=== PATIENT | male | born 1950 | race Caucasian/White ===

== ENCOUNTER 2019-11-12 10:28 | Outpatient (CLI) | payer OTHER, SELFPAY ==
[2019-11-12 11:05] LABS: Basophils Percent Auto 0.2 % (0.2-1.2); Eosinophils Absolute Auto 0.2 K/mm3 (0-0.3); Eosinophils Percent Auto 2.9 % (0-4.4); Hematocrit 42.2 % (42.0-52.0); Immature Granulocyte Absolute 0.04 K/mm3 (0.00-0.031); Immature Granulocyte Percent A 0.5 % (0-0.5); Lymphocytes Absolute Auto 1.63 K/mm3 (0.9-3.2); Lymphocytes Percent Auto 19.8 % (18.3-44.2); Mean Corpuscular HGB Conc 30.8 g/dl (32-36); Mean Corpuscular Hemoglobin 26.1 pg (26-34); Mean Corpuscular Volume 84.7 fl (80-100); Mean Platelet Volume 9.7 fl (7.4-10.4); Monocytes Absolute Auto 0.6 K/mm3 (0.1-0.6); Monocytes Percent Auto 6.8 % (2.6-8.5); Neutrophils Absolute Auto 5.8 K/mm3 (1.3-6.7); Neutrophils Percent Auto 69.8 % (45.5-73.1); Platelet Count Result 208 k/mm3 (150-375); Red Blood Count 4.98 M/mm3 (4.6-6.20); White Blood Count 8.2 K/mm3 (4.5-10.0)
[2019-11-12 11:15] LABS: Hemoglobin A1C 5.6 % (<5.7)
[2019-11-12 11:17] LABS: Alanine Aminotransferase 11 U/L (4-50); Albumin Level 4.2 g/dL (3.5-5.1); Alkaline Phosphatase 128 U/L (38-126); Aspartate Amino Transferase 21 U/L (17-59); Bilirubin,Total 1.3 mg/dL (0.2-1.3); Blood Urea Nitrogen 16 mg/dL (9-20); Calcium 8.8 mg/dL (8.4-10.2); Carbon Dioxide 25 mmol/L (22-30); Chloride 102 mmol/L (98-107); Cholesterol 112 mg/dL (0-200); Estimated Glomerular Filt Rate > 60; Glucose 104 mg/dL (75-110); HDL Direct 51 mg/dL; Sodium 135 mmol/L (137-145); Triglycerides 70 mg/dL (<150)
[2019-11-12 11:28] LABS: LDL Cholesterol Direct 37 mg/dL
[2019-11-12 12:17] LABS: Creatinine Urine 54.4 mg/dL
[2019-11-12 12:22] LABS: Microalbumin Urine Random 10.9 mg/L (0-16.7)
== END 2019-11-12 10:29 | disposition home or self-care (01) ==
PROVIDERS: PCP Family Medicine; Visit Provider Nurse Practitioner
DX: R53.83 Other fatigue (principal); I10 Essential (primary) hypertension; N18.3 Chronic kidney disease, stage 3 (moderate); E78.5 Hyperlipidemia, unspecified; Z86.39 Personal history of other endocrine, nutritional and metabolic disease
CPT/HCPCS: 36415; 80053; 80061; 82043; 83036; 85025

== ENCOUNTER 2020-05-04 14:47 | Outpatient (CLI) | payer OTHER, SELFPAY ==
--- NOTE | ~2020-05-04 | XR_ITS ---
XR knee RT 2V 05/04/2020 15:23 Indication: Right knee pain Procedure: 3 views right knee Comparison: 02/17/2016 Findings: There is severe osteoarthritis of the right knee. No erosive changes. No fracture or trauma tic malalignment. No significant joint effusion. Impression: 1: Severe osteoarthritis of the right knee. Reviewed, dictated and finalized at location B. Impression: 1: Severe osteoarthritis of the right knee.
== END 2020-05-04 14:48 ==
LOC: MICIMG 14:48
PROVIDERS: Visit Provider Nurse Practitioner Family
DX: M25.561 Pain in right knee (principal); M17.11 Unilateral primary osteoarthritis, right knee
CPT/HCPCS: 73560

== ENCOUNTER 2020-12-15 10:07 | Outpatient (CLI) | payer OTHER, SELFPAY ==
--- NOTE | 2020-12-15 10:41 | ECHO_ITS ---
Patient Info Name: Leo Martinez Age: 70 years : 1950 Gender: Male Ht: 72 in Wt: 386 lbs BSA: 3.08 m2 HR: 72 bpm Heart Rhythm: Atrial Fibrillation Exam Date: 12/15/2020 10:52 AM Exam Location: [facility] Pulmonary Patient Status: Outpatient Admit Date: 12/15/2020 Staff Ordering Physician: Xavier Reynolds DO Battery Plate Assembler: Georgie Joshi RDCS Attending Provider: Xavier Reynolds DO Exam Type: CA echo doppler color flow Study Info Indications - UNSPECIFIED ATRIAL FIBRILLATION Complete two-dimensional, color flow and Doppler transthoracic echocardiogram is performed. Summary 1. Complete two-dimensional, color flow and Doppler transthoracic echocardiogram is performed. 2. Left ventricular chamber dimension is normal. 3. Left ventricular systolic function is normal, estimated at 55-60%. 4. There is mildly increased left ventricular wall thickness. 5. The left ventricular diastolic function is normal. 6. E/e' 8 is minimally elevated. 7. Atrial fibrillation. 8. Left atrial chamber dimension is severely enlarged. 9. Right atrial chamber dimension is severely enlarged. 10. There is moderate aortic valve sclerosis. 11. There is mild to moderate mitral valve regurgitation. 12. There is mild to moderate tricuspid valve regurgitation. 13. Moderate pulmonary hypertension, estimated pulmonary arterial systolic pressure is 51 mmHg. Left Ventricle E/e' 8 is minimally elevated. Atrial fibrillation. Left ventricular chamber dimension is normal. Left ventricular systolic function is normal, estimated at 55-60%. There is mildly increased left ventricular wall thickness. The left ventricular diastolic function is normal. Right Ventricle Right ventricular chamber dimension is not well visualized. Left Atria Left atrial chamber dimension is severely enlarged. Right Atria Right atrial chamber dimension is severely enlarged. Aortic Valve The aortic valve is trileaflet. There is moderate aortic valve sclerosis. There is no aortic valve stenosis. There is no aortic valve regurgitation. Pulmonic Valve There is no pulmonic regurgitation. Mitral Valve There is no mitral valve stenosis. There is mild to moderate mitral valve regurgitation. Tricuspid Valve There is mild to moderate tricuspid valve regurgitation. Moderate pulmonary hypertension, estimated pulmonary arterial systolic pressure is 51 mmHg. Pericardium/Pleural There is no pericardial effusion. Inferior Vena Cava Normal inferior vena cava with >50% collapse upon inspiration consistent with normal right atrial pressure, 5 mmHg. Aorta The aortic root size at the sinus of Valsalva is normal. Left Ventricular Outflow Tract Name Value Normal LVOT 2D LVOT Diameter 2.3 cm LVOT Doppler LVOT Peak Gradient 3 mmHg LVOT Mean Gradient 2 mmHg LVOT VTI 24 cm LVOT VTI/AV VTI Ratio 0.7 LVOT Stroke Volume 94 ml LVOT CO 4.8 l/min LVOT CI 1.6 l
== END 2020-12-15 10:08 | disposition home or self-care (01) ==
LOC: ANHCARD 10:09
PROVIDERS: PCP Family Medicine; Visit Provider Internal Medicine Cardiovascular Disease
DX: I48.91 Unspecified atrial fibrillation (principal); I51.7 Cardiomegaly; I27.20 Pulmonary hypertension, unspecified
CPT/HCPCS: 93306

== ENCOUNTER 2021-02-04 16:53 | Inpatient (IN) | payer OTHER, SELFPAY ==
[2021-02-04] VITALS (15 sets, daily range): BP systolic 142–184; BP diastolic 76–112; PULSE 58–81; RESP 15–24; TEMP 36.6; O2SAT 91–96
--- NOTE | ~2021-02-04 | XR_ITS ---
EXAMINATION: XR chest 2V EXAM DATE: 02/04/2021 21:25 INDICATION: Shortness of breath, history of atrial fibrillation. TECHNIQUE: Frontal and lateral projections of the chest obtained and reviewed. There is no prior ted dy for comparison. FINDINGS: There is cardiomegaly. Small pleural effusions. There is pulmonary vascular congestion. No confluent consolidation, pneumothorax or pleural effusion suspected. There are no osseous abnormaliti es identified. IMPRESSION: Cardiomegaly, congestion and small pleural effusions. Reviewed, dictated and finalized at location G.
--- NOTE | 2021-02-04 16:59 | ECG_ITS ---
Measurements Intervals [place] Rate: 67 P: CO: 0 QRS: -47 QRSD: 113 T: 40 QT: 412 QTc: 437 Interpretive Statements ATRIAL FIBRILLATION LEFT ANTERIOR FASCICULAR BLOCK VOLTAGE CRITERIA FOR LVH ABNORMAL ECG Electronically Signed On 02-04-2021 20:53:38 CDT by Xavier Reynolds D.O.
[2021-02-04 17:48] LABS: Basophils Percent Auto 0.1 % (0.2-1.2); Eosinophils Absolute Auto 0.1 K/mm3 (0-0.3); Eosinophils Percent Auto 1.7 % (0-4.4); Hematocrit 43.5 % (42.0-52.0); Hemoglobin 12.9 g/dL (14.0-18.0); Immature Granulocyte Absolute 0.03 K/mm3 (0.00-0.031); Immature Granulocyte Percent A 0.4 % (0-0.5); Lymphocytes Absolute Auto 0.98 K/mm3 (0.9-3.2); Mean Corpuscular HGB Conc 29.7 g/dl (32-36); Mean Corpuscular Hemoglobin 25.1 pg (26-34); Mean Corpuscular Volume 84.8 fl (80-100); Mean Platelet Volume 10.3 fl (7.4-10.4); Monocytes Absolute Auto 0.6 K/mm3 (0.1-0.6); Monocytes Percent Auto 7.9 % (2.6-8.5); Neutrophils Absolute Auto 6.3 K/mm3 (1.3-6.7); Neutrophils Percent Auto 77.9 % (45.5-73.1); Platelet Count Result 198 k/mm3 (150-375); Red Blood Count 5.13 M/mm3 (4.6-6.20); Red Cell Distribution Width 17.4 % (11.5-14.5); White Blood Count 8.1 K/mm3 (4.5-10.0)
[2021-02-04 17:56] LABS: Hypochromasia 1+ (NORMAL); Ovalocytes 1+ (NORMAL); Platelet Estimate Adequate (Adequate)
[2021-02-04 17:58] LABS: INR 1.4; Prothrombin Time 16.5 Seconds (11.1-14.7)
[2021-02-04 17:59] LABS: Partial Thromboplastin Time 35.1 SECONDS (22.3-36.8)
[2021-02-04 20:09] LABS: Anion Gap 9 mmol/L (8-16); Blood Urea Nitrogen 21 mg/dL (9-20); Calcium 9.3 mg/dL (8.4-10.2); Carbon Dioxide 31 mmol/L (22-30); Chloride 98 mmol/L (98-107); Estimated CRCL calculation 97 ml/min; Estimated Glomerular Filt Rate > 60; Glucose 88 mg/dL (65-110); Sodium 138 mmol/L (137-145)
[2021-02-04 20:21] LABS: NT Pro B Type Natriuretic Pept 7320 pg/mL (5-100); Troponin I < 0.012 ng/mL (0.000-0.034)
--- NOTE | 2021-02-04 20:36 | ED.SOB ---
HPI - SOB/Dyspnea General Chief Complaint: Shortness of Breath/Dyspnea Stated Complaint: unspecified Time Seen by Provider: 02/04/21 19:47 Source: patient and RN notes reviewed Mode of arrival: ambulatory Limitations: no limitations History of Present Illness HPI Narrative: This is a 70 year old male with history of atrial fibrillation, CKD, hypertension who presents for evaluation of shortness of breath. He reports he is having shortness of breath with exertion for 1 week. He is unsure of history CHF but he does take Lasix. He states he does not take daily as it prescribed because it makes him urinate to frequently. He denies fever, chest pain, cough or wheezing. HE does reports chronic leg edema that has gradually worsened over past few months. He is scheduled to see Dr Piña next month for evaluation of his chronic shortness of breath. Related Data Home Medications Medication Instructions Recorded Confirmed amlodipine [Norvasc] 5 mg PO DAILY 02/05/21 02/05/21 atorvastatin 40 mg PO HS 02/05/21 02/05/21 bupropion HCl [Wellbutrin XL] 300 mg PO QAM 02/05/21 02/05/21 duloxetine 30 mg PO BID 02/05/21 02/05/21 metformin 500 mg PO DAILY 02/05/21 02/05/21 metoprolol tartrate 100 mg PO BID 02/05/21 02/05/21 Allergies Allergy/AdvReac Type Severity Reaction Status Date / Time baclofen Allergy Unknown Unknown Verified 02/04/21 17:09 Review of Systems Review of Systems: All systems reviewed & are unremarkable except as noted in HPI and below Constitutional: Constitutional: Denies chills and Denies fever(s) ENT: Denies nasal congestion and Denies sore throat Cardiovascular: Cardiovascular: Denies chest pain and Denies radiating jaw, neck or arm pain Respiratory: Respiratory: Denies cough, Reports dyspnea and Denies wheezing Gastrointestinal: Gastrointestinal: Denies abdominal pain, Denies diarrhea, Denies nausea and Denies vomiting Musculoskeletal: Comments: leg edema PMFSH Past Medical History Medical History Atrial fibrillation BPH (benign prostatic hyperplasia) CKD (chronic kidney disease) stage 3, GFR 30-59 ml/min Follows with Dr Morin Essential (primary) hypertension GERD without esophagitis History of DVT of lower extremity Lumbar spondylosis with myelopathy Osteoarthritis Surgical History Surgical History History of knee surgery History of rotator cuff surgery (~1985) History of total hip replacement (~2006) Family History Family History Other Asthma Social History Social History Social History: drinks 1 soda per week Years smoked: 20 Smoking status: Former smoker Tobacco type: cigarettes Second hand tobacco smoke exposure: No Smoking end date: 07/16/82 Alcohol intake: current Alcohol use details: drinks 2 beverages per yr. approximately. Substance use: never Substance use type: does not use Additional living arrangements comments: with of 36 years Gender identity (if verbalized by the patient): Male Spiritual care concerns: No Agree to blood products: Yes Exam Const: General: no acute distress and alert Nutritional Appearance: obese Orientation/consciousness: patient oriented x3 Eyes: EOM: EOMs intact bilaterally Resp: Effort & Inspection: normal respiratory effort, not labored and not tachypneic Auscultation: clear to auscultation bilaterally and diminished lung sounds Cardio: Rate: regular rate Rhythm: regular rhythm Heart sounds: no murmurs GI: GI Palp: Yes Soft to palpation, No Tenderness to palpation present (GI) and No Guarding due to palpation present (GI) Auscultation: normal bowel sounds Skin: Other: bilateral venous stasis change to legs, Neuro: General: patient oriented x3 and moves all extremities
[2021-02-04 20:59] LABS: Alveolar/Arterial O2 Gradient 31.5 mmHg; Base Excess ABG 5.2 mEq/l (+/-2.0); Carboxyhemoglobin 1.9 % THb (0-2.0); Fractional Inspired Oxygen 21 %; HCO3 ABG 29.8 mEq/l (22.0-26.0); Methemoglobin ABG 0.3 %THb (0-1.5); Oxygen Content ABG 17.4 %vol (16.0-22.0); Oxygen Saturation ABG 93.8 % (95.0-100.0); Oxyhemoglobin 90.9 % THb (90.0-100.0); PCO2 ABG 43.8 mmHg (35.0-45.0); PO2 ABG 65.8 mmHg (80.0-100.0); PO2 FiO2 Ratio Arterial Blood 3.13 %; Reduced Hemoglobin 6.9 %THb (0-5.0); Total Hemoglobin 13.6 g/dL (12.0-18.0); pH ABG 7.451 (7.350-7.450)
[2021-02-04 21:00] LABS: Device ROOM AIR; Modified Allen's Test Pass; Site Drawn RIGHT RADIAL
[2021-02-04] MEDS: FUROSEMIDE INJ 40 MG/4 ML VIAL IV PUSH (21:58)
[2021-02-05] VITALS (13 sets, daily range): BP systolic 127–167; BP diastolic 70–90; PULSE 58–84; RESP 16–18; TEMP 36.3–36.6; O2SAT 94–100
[2021-02-05 01:02] LABS: Glucose Point of Care 75 mg/dl (65-105)
[2021-02-05] MEDS: amLODIPine BESYLATE 5 MG TABLET PO ×2 (02:01→09:11)
--- NOTE | 2021-02-05 02:58 | ADMGEN ---
This patient, Leo Martinez, was admitted to Medical Room [facility]- at 0240. Patient/family oriented to hospital policies and general routines including ID bracelet, bed and alarms, visiting hours, pain management, procedures, bathroom and other care routines, personal items, smoking policy, room service/diet, and visiting hours. Information on how to activate the Rapid Response Team has been discussed. Patient/Family are encouraged to report perceived risks to care and to ask questions if they do not understand what they are told or what they should do.
[2021-02-05] MEDS: FUROSEMIDE INJ 40 MG/4 ML VIAL IV PUSH ×2 (08:11→20:49)
[2021-02-05 08:24] LABS: Anion Gap 7 mmol/L (8-16); Blood Urea Nitrogen 19 mg/dL (9-20); Calcium 8.7 mg/dL (8.4-10.2); Carbon Dioxide 33 mmol/L (22-30); Chloride 96 mmol/L (98-107); Estimated CRCL calculation 97 ml/min; Estimated Glomerular Filt Rate > 60; Glucose 94 mg/dL (65-110); Potassium 3.1 mmol/L (3.4-5.0); Sodium 136 mmol/L (137-145)
[2021-02-05] MEDS: METOPROLOL TARTRATE 50 MG TAB 100 MG PO ×2 (09:11→20:49)
[2021-02-05] MEDS: buPROPion HCL XL (24 HR) 150 MG TABCR 300 MG PO (09:12)
[2021-02-05] MEDS: TAMSULOSIN HCL 0.4 MG CAPSULE PO (09:12)
[2021-02-05] MEDS: FERROUS SULFATE 324 MG TABLET PO ×2 (09:12→18:10)
[2021-02-05] MEDS: lisinopriL 20 MG TABLET 40 MG PO ×2 (09:12→20:49)
[2021-02-05] MEDS: DOCUSATE SODIUM 100 MG CAPSULE PO (09:12)
[2021-02-05] MEDS: APIXABAN 5 MG TABLET PO ×2 (09:12→18:10)
--- NOTE | 2021-02-05 10:49 | PM.IMHP ---
H&P: HPI History of Present Illness Date/Time: 02/05/21 10:49 Chief Complaint: dyspnea Narrative: date of admission: 02/04/2021 date of service: 02/05/2021 Leo Martinez is a 70-year-old male with history of atrial fibrillation on chronic anticoagulation, CKD stage III, hypertension, BPH, and CVA who presented to the emergency department on 02/04/2021 statinghe was not feeling right . he began not feeling well morning of presentation. He said that he was a little short of breath and felt wobbly when walking. All throughout the day, he continued not to feel like himself, therefore decided to call EMS. upon presentation to the emergency department, his vital signs were stable, hemoglobin was slightly decreased at 12.9 additional CBC and BMP unremarkable, troponin negative, BNP 7000, and CXR showed cardiomegaly with small pleural effusions and pulmonary vascular congestion, concerning for CHF exacerbation. On my initial evaluation, he was beginning to feel a bit better. With further questioning, he indicates that he has had dyspnea on exertion ongoing for >6 months. He has had decreased exercise tolerance, and about 2 weeks ago, he arrived at this facility for an appointment but was not able to make it down the hallway so he sat for about 30 minutes in the chamorro, then enlisted the help of security personnel to get him back into his vehicle. He typically goes to a local restaurant about 3x/week and recently has been needing assistance to get in and out of his truck. He notes his lower extremities are chronically edematous, but worsened recently. He denies abdominal or scrotal swelling. Unable to indicate orthopnea as he has slept in a recliner for many years for comfort. He never lays flat. Denies cough. No chest pain or palpitations. He has not taken his Lasix in 1 month due to unwanted frequent urination, noting he has had difficulty with urinary incontinence for >6 months since his stroke. He is being admitted for observation. Supervising physician for this history and physical is Dr. Kristopher Peralta Review of Systems Review of Systems: Narrative: All systems reviewed with pertinent positives and negatives as per HPI. Additionally, he denies headache, dysphagia, visual disturbances, hearing loss. No abdominal pain, nausea, or vomiting. Reports regular bowel movements and denies melena or hematochezia. Denies dysuria, hematuria but does have issues with incontinence. He has chronic neuropathy in the lower extremities. He has chronic knee and back pain and is followed by Pain Management. He is also established with Dr. Reynolds armhole presser, Dr. Morin, lead net software developer, and Dr. Terrell, member services coordinator. [facility] Past Medical History Medical History (Updated 02/05/21 @ 11:35 by Oxana Alonso PA-C) Atrial fibrillation BPH (benign prostatic hyperplasia) CKD (chronic kidney disease) stage 3, GFR 30-59 ml/min Follows with Dr Morin CVA (cerebral vascular accident) Essential (primary) hypertension History of DVT of lower extremity Lumbar spondylosis with myelopathy Osteoarthritis Surgical History Surgical History (Updated 02/05/21 @ 11:15 by Oxana Alonso PA-C) History of cholecystectomy History of knee surgery History of rotator cuff surgery (~1985) History of total hip replacement (~2006) Family History Family History (Updated 02/05/21 @ 11:16 by Oxana Alonso PA-C) Father Diabetes mellitus Heart disease Mother Hypertension Other Asthma Social History Social History (Updated 02/05/21 @ 11:20 by Oxana Alonso PA-C) Social History: Mr. Martinez lives at home with his . He is independent with his daily activities. He is retired from working as a laborer airport maintenance. He designates his , Jennyfer, as his surrogate decision maker and would like to be a full code. Smoking packs per day: 1 Smoking cigarettes per day: 20.0 Years smoked: 25 Smoking pack-years: 25.00 Smoking status: Former smoker Tobacco
[2021-02-05 12:21] LABS: Glucose Point of Care 103 mg/dl (65-105)
[2021-02-05] MEDS: POTASSIUM CHLORIDE 20 MEQ TABLET 40 MEQ PO (12:58)
[2021-02-05 17:25] LABS: Glucose Point of Care 102 mg/dl (65-105)
[2021-02-05] MEDS: POTASSIUM CHLORIDE 20 MEQ TABLET.ER PO (18:10)
[2021-02-05] MEDS: ATORVASTATIN 40 MG TABLET PO (20:50)
[2021-02-05 22:02] LABS: Glucose Point of Care 129 mg/dl (65-105)
[2021-02-06] VITALS (10 sets, daily range): BP systolic 142–154; BP diastolic 78–91; PULSE 50–74; RESP 16; TEMP 36.1–36.2; O2SAT 93–98
[2021-02-06 05:51] LABS: Hematocrit 40.9 % (42.0-52.0); Hemoglobin 12.6 g/dL (14.0-18.0)
[2021-02-06 06:04] LABS: Anion Gap 6 mmol/L (8-16); Blood Urea Nitrogen 15 mg/dL (9-20); Calcium 8.6 mg/dL (8.4-10.2); Carbon Dioxide 34 mmol/L (22-30); Chloride 96 mmol/L (98-107); Estimated CRCL calculation 97 ml/min; Estimated Glomerular Filt Rate > 60; Glucose 92 mg/dL (65-110); Magnesium 1.7 mg/dL (1.6-2.3); Potassium 3.1 mmol/L (3.4-5.0); Sodium 136 mmol/L (137-145)
[2021-02-06 08:06] LABS: Glucose Point of Care 110 mg/dl (65-105)
[2021-02-06] MEDS: POTASSIUM CHLORIDE 20 MEQ TABLET PO (09:47)
[2021-02-06] MEDS: FERROUS SULFATE 324 MG TABLET PO ×2 (09:48→17:21)
[2021-02-06] MEDS: POTASSIUM CHLORIDE 20 MEQ TABLET.ER PO ×2 (09:48→17:22)
[2021-02-06] MEDS: amLODIPine BESYLATE 5 MG TABLET PO (09:48)
[2021-02-06] MEDS: buPROPion HCL XL (24 HR) 150 MG TABCR 300 MG PO (09:48)
[2021-02-06] MEDS: APIXABAN 5 MG TABLET PO ×2 (09:48→17:21)
[2021-02-06] MEDS: lisinopriL 20 MG TABLET 40 MG PO ×2 (09:48→20:42)
[2021-02-06] MEDS: DOCUSATE SODIUM 100 MG CAPSULE PO (09:48)
[2021-02-06] MEDS: METOPROLOL TARTRATE 50 MG TAB 100 MG PO ×2 (09:49→20:42)
[2021-02-06] MEDS: FUROSEMIDE INJ 40 MG/4 ML VIAL IV PUSH ×2 (09:49→20:42)
[2021-02-06] MEDS: TAMSULOSIN HCL 0.4 MG CAPSULE PO (09:49)
[2021-02-06 12:45] LABS: Glucose Point of Care 142 mg/dl (65-105)
--- NOTE | 2021-02-06 16:00 | PM.IMPN ---
Progress Note: A&P Assessment and Plan (1) CHF exacerbation: Code(s): I50.9 - Heart failure, unspecified Status: Acute Assessment and Plan: Presented with HUERTA. CXR with cardiomegaly, congestion, and small pleural effusions. BNP is 7000 Continue diuresis with Lasix 40 mg IV b.i.d. Minimal diuresis thus far. Will initiate light fluid restriction diet Continue Arroyo catheter for accurate I&O given his urinary incontinence Monitor intake and output and daily weights Echocardiogram from December reviewed Heart healthy diet (2) Atrial fibrillation, chronic: Code(s): I48.20 - Chronic atrial fibrillation, unspecified Status: Acute Assessment and Plan: Rate is controlled. Continue metoprolol continue Eliquis (3) CKD (chronic kidney disease) stage 3, GFR 30-59 ml/min: Code(s): N18.3 - Chronic kidney disease, stage 3 (moderate) Status: Chronic Assessment and Plan: Renal function is consistent with baseline monitor BMP (4) Normocytic anemia: Code(s): D64.9 - Anemia, unspecified Status: Acute Assessment and Plan: hemoglobin and hematocrit consistent with baseline. Continue ferrous sulfate monitor H&H (5) Hypokalemia: Code(s): E87.6 - Hypokalemia Status: Acute Assessment and Plan: potassium is 3.1 today, likely due to diuretics Continue scheduled potassium supplementation 20 mEq PO BID with diuresis Additional 20 mEq given this AM Also will give 2 g IV magnesium repeat BMP tomorrow and mag (6) Essential (primary) hypertension: Code(s): I10 - Essential (primary) hypertension Status: Chronic Assessment and Plan: BP was elevated on arrival, likely due to volume overload and has improved today. Last BP 142/78. continue amlodipine, metoprolol, and ANUSHKA-inhibitor monitor BP trends (7) Generalized weakness: Code(s): R53.1 - Weakness Status: Acute Assessment and Plan: Ongoing for several months. Suspect overall physical deconditioning in combination with chronic medical comorbidities appreciate PT/ OT eval consider SNF. claims coordinator to see tomorrow; input appreciated. Additional Plan Will ask wound care to see for recommendations on topical agents for lower extremities and pannus. Subjective Date/time seen: 02/06/21 16:01 Interval history: Date of service: 02/06/2021 Leo Martinez is a 70-year-old male with history of atrial fibrillation on chronic anticoagulation, CKD stage III, hypertension, BPH, and CVA is seen in follow-up for CHF exacerbation. he is feeling about the same today. He was able to get up therapy and walk to the bathroom. He still has dyspnea on exertion and limited stamina. Denies shortness of breath at rest. No cough. Reports lower extremity edema is unchanged. No wheezing. Denies chest pain or palpitations. No abdominal pain, fever, chills, nausea, vomiting, dizziness, or lightheadedness. I had a lengthy discussion with the patient and his regarding discharge planning. The patient indicated that he wants to go home but his feels strongly that he needs to be rehabilitated before returning home. She cannot care for him at home and he has difficulty getting around the house. He mentioned that he is very afraid of falling and this hinders his mobility. I encourage both the patient and his that we will continue with physical therapy and occupational therapy and they will meet with a senior caregiver to discuss detailed discharge planning. Review of Systems Review of Systems: All systems reviewed & are unremarkable except as noted in HPI and below Exam Narrative: Exam Narrative: Mr. Martinez is an obese, chronically ill appearing 70-year-old male who is lying semi-recumbent in bed. He appears comfortable and is in NARD. Neuro: awake, alert and oriented x4, speech clear,
[2021-02-06 17:01] LABS: Glucose Point of Care 114 mg/dl (65-105)
[2021-02-06] MEDS: MAGNESIUM SULF 2 GM/WATER 50ML 2 GM/50 ML BAG IVPB (17:22)
[2021-02-06] MEDS: ACETAMINOPHEN 325 MG TABLET 650 MG PO (20:37)
[2021-02-06] MEDS: ATORVASTATIN 40 MG TABLET PO (20:42)
[2021-02-06 22:18] LABS: Glucose Point of Care 123 mg/dl (65-105)
[2021-02-07] VITALS (9 sets, daily range): BP systolic 138–148; BP diastolic 83–96; PULSE 60–73; RESP 16–18; TEMP 36.1–36.7; O2SAT 96–97
--- NOTE | 2021-02-07 02:48 | PCRCNOTE ---
Apnea link remain on pt, 2 liters bleed in, sp02 97%
[2021-02-07 06:49] LABS: Hemoglobin 12.9 g/dL (14.0-18.0)
[2021-02-07 07:16] LABS: Anion Gap 5 mmol/L (8-16); Blood Urea Nitrogen 12 mg/dL (9-20); Calcium 8.3 mg/dL (8.4-10.2); Carbon Dioxide 34 mmol/L (22-30); Chloride 97 mmol/L (98-107); Estimated CRCL calculation 107 ml/min; Estimated Glomerular Filt Rate > 60; Glucose 94 mg/dL (65-110); Potassium 3.3 mmol/L (3.4-5.0); Sodium 136 mmol/L (137-145)
[2021-02-07] MEDS: buPROPion HCL XL (24 HR) 150 MG TABCR 300 MG PO (08:40)
[2021-02-07] MEDS: METOPROLOL TARTRATE 50 MG TAB 100 MG PO ×2 (08:40→20:48)
[2021-02-07] MEDS: FERROUS SULFATE 324 MG TABLET PO ×2 (08:40→16:46)
[2021-02-07] MEDS: DOCUSATE SODIUM 100 MG CAPSULE PO (08:40)
[2021-02-07] MEDS: amLODIPine BESYLATE 5 MG TABLET PO (08:40)
[2021-02-07] MEDS: POTASSIUM CHLORIDE 20 MEQ TABLET.ER PO ×2 (08:40→16:46)
[2021-02-07] MEDS: lisinopriL 20 MG TABLET 40 MG PO ×2 (08:40→20:48)
[2021-02-07] MEDS: APIXABAN 5 MG TABLET PO ×2 (08:41→16:46)
[2021-02-07] MEDS: TAMSULOSIN HCL 0.4 MG CAPSULE PO (08:41)
[2021-02-07] MEDS: FUROSEMIDE INJ 40 MG/4 ML VIAL IV PUSH ×2 (08:43→20:48)
[2021-02-07 09:15] LABS: Glucose Point of Care 100 mg/dl (65-105)
[2021-02-07 11:58] LABS: Glucose Point of Care 109 mg/dl (65-105)
[2021-02-07] MEDS: TOLNAFTATE 1% POWDER 45 GM BTL 1 APPLIC TOPICAL ×2 (14:48→20:47)
--- NOTE | 2021-02-07 15:57 | PM.IMPN ---
Progress Note: A&P Assessment and Plan (1) CHF exacerbation: Code(s): I50.9 - Heart failure, unspecified Status: Acute Assessment and Plan: Presented with HUERTA. CXR with cardiomegaly, congestion, and small pleural effusions. BNP 7000 Continue diuresis with Lasix 40 mg IV b.i.d. Will decrease to 40 mg IV daily for tomorrow. Volume status improving. Will continue with 1800 ml fluid restriction Continue Arroyo catheter for accurate I&O given his urinary incontinence Monitor intake and output and daily weights Echocardiogram from December reviewed Heart healthy diet (2) Atrial fibrillation, chronic: Code(s): I48.20 - Chronic atrial fibrillation, unspecified Status: Acute Assessment and Plan: Rate is controlled. Continue metoprolol continue Eliquis (3) CKD (chronic kidney disease) stage 3, GFR 30-59 ml/min: Code(s): N18.3 - Chronic kidney disease, stage 3 (moderate) Status: Chronic Assessment and Plan: Renal function is consistent with baseline monitor BMP (4) Normocytic anemia: Code(s): D64.9 - Anemia, unspecified Status: Acute Assessment and Plan: hemoglobin and hematocrit consistent with baseline. Continue ferrous sulfate monitor H&H (5) Hypokalemia: Code(s): E87.6 - Hypokalemia Status: Acute Assessment and Plan: potassium is 3.2 today, likely due to diuretics Continue scheduled potassium supplementation 20 mEq PO BID with diuresis Mag is 2.0 repeat BMP and mag tomorrow (6) Essential (primary) hypertension: Code(s): I10 - Essential (primary) hypertension Status: Chronic Assessment and Plan: BP was elevated on arrival, likely due to volume overload and has improved today. Last BP 148/86. continue amlodipine, metoprolol, and ANUSHKA-inhibitor monitor BP trends (7) Generalized weakness: Code(s): R53.1 - Weakness Status: Acute Assessment and Plan: Ongoing for several months. Suspect overall physical deconditioning in combination with chronic medical comorbidities appreciate PT/ OT eval planning for SNF on discharge Subjective Date/time seen: 02/07/21 15:57 Interval history: Date of service: 02/07/2021 Leo Martinez is a 70-year-old male with history of atrial fibrillation on chronic anticoagulation, CKD stage III, hypertension, BPH, and CVA is seen in follow-up for CHF exacerbation. He is doing okay today. He denies SOB at rest but has some HUERTA. No cough, wheezing, chest pain, palpitations, orthopnea. Appetite is good. No nausea, vomiting, fever, chills, dizziness, lightheadedness. Doing well getting up with therapy. Complaining of chronic right knee pain that he rates as 4/10. Review of Systems Review of Systems: All systems reviewed & are unremarkable except as noted in HPI and below Exam Narrative: Exam Narrative: Mr. Martinez is an obese, chronically ill appearing 70-year-old male who is lying semi-recumbent in bed. He appears comfortable and is in NARD. Neuro: awake, alert and oriented x4, speech clear, no focal neuro deficits noted HEENMT: normocephalic, atraumatic, EOMI, sclerae anicteric, moist oral mucosa Neck: supple, no lymphadenopathy Respiratory: clear to auscultation bilaterally without crackles, rhonchi, or wheezing, nonlabored breathing Cardio: regular rate, regular rhythm with S1-S2 Abdomen: protuberant, normoactive bowel sounds, soft, nontender to palpation Extremities: RLE with 1+ edema and LLE with 2+ edema, no tenderness to palpation, DP pulses 2+ bilaterally Skin: calves with extremely thickened, dry skin and chronic venous stasis dermatitis, toenails are thickened, fingernails neatly trimmed Psych: appropriate mood and affect, judgment and insight intact Objective Data Vital Signs Vital Signs: Vital Signs - 24 hr 02/06/21 20:00 02/06/21 20:42 02/06/21 21:31 Temperature
[2021-02-07 17:01] LABS: Glucose Point of Care 97 mg/dl (65-105)
[2021-02-07] MEDS: traMADol HCL (*CRX) 25 MG TABLET PO (20:47)
[2021-02-07] MEDS: ATORVASTATIN 40 MG TABLET PO (20:48)
[2021-02-08] VITALS (7 sets, daily range): BP systolic 130–140; BP diastolic 70–73; PULSE 67–96; RESP 12–20; TEMP 36.4–36.6; O2SAT 93–97
[2021-02-08 01:10] LABS: Glucose Point of Care 121 mg/dl (65-105)
[2021-02-08 05:53] LABS: Hematocrit 44.7 % (42.0-52.0); Hemoglobin 13.6 g/dL (14.0-18.0)
[2021-02-08 06:01] LABS: Anion Gap 7 mmol/L (8-16); Blood Urea Nitrogen 14 mg/dL (9-20); Carbon Dioxide 35 mmol/L (22-30); Chloride 95 mmol/L (98-107); Estimated CRCL calculation 84 ml/min; Estimated Glomerular Filt Rate > 60; Glucose 92 mg/dL (65-110); Magnesium 1.9 mg/dL (1.6-2.3); Potassium 3.4 mmol/L (3.4-5.0); Sodium 137 mmol/L (137-145)
[2021-02-08] MEDS: POTASSIUM CHLORIDE 20 MEQ TABLET.ER PO ×2 (08:01→17:10)
[2021-02-08] MEDS: DOCUSATE SODIUM 100 MG CAPSULE PO (08:01)
[2021-02-08] MEDS: METOPROLOL TARTRATE 50 MG TAB 100 MG PO ×2 (08:02→20:04)
[2021-02-08] MEDS: APIXABAN 5 MG TABLET PO ×2 (08:02→17:11)
[2021-02-08] MEDS: TAMSULOSIN HCL 0.4 MG CAPSULE PO (08:02)
[2021-02-08] MEDS: FUROSEMIDE 40 MG TABLET PO (08:02)
[2021-02-08] MEDS: FERROUS SULFATE 324 MG TABLET PO ×2 (08:03→17:10)
[2021-02-08] MEDS: amLODIPine BESYLATE 5 MG TABLET PO (08:03)
[2021-02-08] MEDS: lisinopriL 20 MG TABLET 40 MG PO ×2 (08:03→20:04)
[2021-02-08] MEDS: buPROPion HCL XL (24 HR) 150 MG TABCR 300 MG PO (08:03)
[2021-02-08] MEDS: TOLNAFTATE 1% POWDER 45 GM BTL 1 APPLIC TOPICAL ×2 (08:05→20:07)
[2021-02-08] MEDS: traMADol HCL (*CRX) 25 MG TABLET PO ×2 (08:14→20:05)
[2021-02-08] MEDS: EUCERIN CREAM 120 GM JAR 1 APPLIC TOPICAL (10:18)
[2021-02-08 12:01] LABS: Glucose Point of Care 114 mg/dl (65-105)
--- NOTE | 2021-02-08 13:03 | PM.IMPN ---
Progress Note: A&P Assessment and Plan (1) CHF exacerbation: Code(s): I50.9 - Heart failure, unspecified Status: Acute Assessment and Plan: Presented with HUERTA. CXR with cardiomegaly, congestion, and small pleural effusions. BNP 7000 Was diuresed with with Lasix 40 mg IV b.i.d and transitioned to once daily oral lasix today - monitor for response. Tolerating well today thus far. Volume status improving. Will continue with 1800 ml fluid restriction Continue Arroyo catheter for accurate I&O given his urinary incontinence Monitor intake and output and daily weights Echocardiogram from December reviewed Heart healthy diet. Continue PT/OT. Dispo is SNF. Submitted for insurance authorization today. (2) Atrial fibrillation, chronic: Code(s): I48.20 - Chronic atrial fibrillation, unspecified Status: Acute Assessment and Plan: Rate is controlled. Continue metoprolol continue Eliquis (3) CKD (chronic kidney disease) stage 3, GFR 30-59 ml/min: Code(s): N18.3 - Chronic kidney disease, stage 3 (moderate) Status: Chronic Assessment and Plan: Renal function is consistent with baseline monitor BMP (4) Normocytic anemia: Code(s): D64.9 - Anemia, unspecified Status: Acute Assessment and Plan: hemoglobin and hematocrit consistent with baseline. No signs or symptoms of acute bleeding. Continue ferrous sulfate Monitor H&H (5) Hypokalemia: Code(s): E87.6 - Hypokalemia Status: Acute Assessment and Plan: potassium is 3.4 today, likely due to diuretics. Mag 1.9. Continue scheduled potassium supplementation 20 mEq PO BID with diuresis Started Mag oxide. Monitor electrolytes daily. (6) Essential (primary) hypertension: Code(s): I10 - Essential (primary) hypertension Status: Chronic Assessment and Plan: BP was elevated on arrival, likely due to volume overload and has improved today. Last BP 140/72. continue amlodipine, metoprolol, and ANUSHKA-inhibitor monitor BP trends (7) Generalized weakness: Code(s): R53.1 - Weakness Status: Acute Assessment and Plan: Ongoing for several months. Suspect overall physical deconditioning in combination with chronic medical comorbidities appreciate PT/ OT eval planning for SNF on discharge. Submitted for insurance authorization this afternoon. Additional Plan Appreciate wound care recommendations on topical agents for lower extremities and pannus. Subjective Date/time seen: 02/08/21 1030 Interval history: Leo Martinez is a 70-year-old male with history of atrial fibrillation on chronic anticoagulation, CKD stage III, hypertension, BPH, and CVA is seen in follow-up for CHF exacerbation. Feeling a bit better today. Still with some exertional shortness of breath. Denies cough, wheezing, chest pain, palpitations. Eating and drinking well without nausea, vomiting or abdominal pain. He describes a right knee pain which is chronic for him. Review of Systems Review of Systems: All systems reviewed & are unremarkable except as noted in HPI and below Exam Narrative: Exam Narrative: Mr. Martinez is an obese, chronically ill appearing 70-year-old male who is resting sitting up in bedside chair. He appears comfortable and is in NARD. Neuro: awake, alert and oriented x4, speech clear, no focal neuro deficits noted HEENMT: normocephalic, atraumatic, EOMI, sclerae anicteric, moist oral mucosa Neck: supple, no lymphadenopathy Respiratory: diminished breath sounds MARINE, nonlabored breathing, tolerating room air. Cardio: regular rate, regular rhythm with S1-S2 Abdomen: protuberant, normoactive bowel sounds, soft, nontender to palpation Extremities: RLE with 1+ edema and LLE with 2+ edema, no tenderness to palpation, DP pulses 2+ bilaterally Skin: calves with extremely thickened, dry skin and chronic venous stasis derma
[2021-02-08] MEDS: MAGNESIUM OXIDE 400 MG TABLET PO (15:14)
[2021-02-08 18:04] LABS: Glucose Point of Care 177 mg/dl (65-105)
[2021-02-08] MEDS: ATORVASTATIN 40 MG TABLET PO (20:04)
[2021-02-08 20:58] LABS: Glucose Point of Care 115 mg/dl (65-105)
[2021-02-09 05:39] LABS: Hematocrit 43.5 % (42.0-52.0); Hemoglobin 13.3 g/dL (14.0-18.0); Mean Corpuscular HGB Conc 30.6 g/dl (32-36); Mean Corpuscular Hemoglobin 25.8 pg (26-34); Mean Corpuscular Volume 84.5 fl (80-100); Platelet Count Result 191 k/mm3 (150-375); Red Blood Count 5.15 M/mm3 (4.6-6.20); Red Cell Distribution Width 17.5 % (11.5-14.5); White Blood Count 8.8 K/mm3 (4.5-10.0)
[2021-02-09 05:51] LABS: Anion Gap 6 mmol/L (8-16); Blood Urea Nitrogen 16 mg/dL (9-20); Calcium 8.7 mg/dL (8.4-10.2); Carbon Dioxide 33 mmol/L (22-30); Chloride 97 mmol/L (98-107); Estimated CRCL calculation 92 ml/min; Estimated Glomerular Filt Rate > 60; Glucose 86 mg/dL (65-110); Magnesium 1.9 mg/dL (1.6-2.3); Potassium 3.5 mmol/L (3.4-5.0); Sodium 136 mmol/L (137-145)
[2021-02-09 05:52] VITALS: BP 142/83; PULSE 85; RESP 18; TEMP 36.4; O2SAT 96
[2021-02-09] MEDS: POTASSIUM CHLORIDE 20 MEQ TABLET.ER PO ×2 (08:25→18:39)
[2021-02-09] MEDS: APIXABAN 5 MG TABLET PO ×2 (08:25→18:38)
[2021-02-09] MEDS: amLODIPine BESYLATE 5 MG TABLET PO (08:25)
[2021-02-09] MEDS: DOCUSATE SODIUM 100 MG CAPSULE PO (08:26)
[2021-02-09] MEDS: FUROSEMIDE 40 MG TABLET PO (08:26)
[2021-02-09] MEDS: FERROUS SULFATE 324 MG TABLET PO ×2 (08:26→18:39)
[2021-02-09] MEDS: buPROPion HCL XL (24 HR) 150 MG TABCR 300 MG PO (08:26)
[2021-02-09] MEDS: lisinopriL 20 MG TABLET 40 MG PO ×2 (08:27→20:11)
[2021-02-09] MEDS: TAMSULOSIN HCL 0.4 MG CAPSULE PO (08:27)
[2021-02-09] MEDS: MAGNESIUM OXIDE 400 MG TABLET PO (08:27)
[2021-02-09 08:28] VITALS: PULSE 88
[2021-02-09 08:28] LABS: Glucose Point of Care 154 mg/dl (65-105)
[2021-02-09] MEDS: METOPROLOL TARTRATE 50 MG TAB 100 MG PO ×2 (08:28→20:11)
[2021-02-09] MEDS: EUCERIN CREAM 120 GM JAR 1 APPLIC TOPICAL (08:37)
[2021-02-09] MEDS: TOLNAFTATE 1% POWDER 45 GM BTL 1 APPLIC TOPICAL ×2 (08:37→20:12)
--- NOTE | 2021-02-09 11:59 | PCOTNOTE ---
Attempted to see patient this am, however patient declined due to pain from catheter. Pt stated, I don't want to do anything until they take this thing out.
[2021-02-09 12:34] LABS: Glucose Point of Care 99 mg/dl (65-105)
[2021-02-09 14:00] VITALS: BP 140/88; PULSE 75; RESP 16; TEMP 36.2; O2SAT 97
[2021-02-09 16:07] LABS: Glucose Point of Care 104 mg/dl (65-105)
--- NOTE | 2021-02-09 16:14 | PM.IMPN ---
Progress Note: A&P Assessment and Plan (1) CHF exacerbation: Code(s): I50.9 - Heart failure, unspecified Status: Acute Assessment and Plan: Presented with HUERTA. CXR with cardiomegaly, congestion, and small pleural effusions. BNP 7000 Was diuresed with with Lasix 40 mg IV b.i.d and has been transitioned to 40 mg PO lasix daily Tolerating well and continuing to diurese Volume status has improved Will discontinue fluid restriction diet, but did discuss avoiding excess fluid intake Continue Arroyo catheter for accurate I& O. Plan for voiding trial tomorrow morning. Monitor intake and output and daily weights Echocardiogram from December reviewed Heart healthy diet. (2) Atrial fibrillation, chronic: Code(s): I48.20 - Chronic atrial fibrillation, unspecified Status: Acute Assessment and Plan: Rate is controlled. Continue metoprolol continue Eliquis (3) CKD (chronic kidney disease) stage 3, GFR 30-59 ml/min: Code(s): N18.3 - Chronic kidney disease, stage 3 (moderate) Status: Chronic Assessment and Plan: Renal function is consistent with baseline monitor BMP (4) Normocytic anemia: Code(s): D64.9 - Anemia, unspecified Status: Acute Assessment and Plan: hemoglobin and hematocrit consistent with baseline. No signs or symptoms of acute bleeding. Continue ferrous sulfate Monitor H&H (5) Hypokalemia: Code(s): E87.6 - Hypokalemia Status: Acute Assessment and Plan: Likely due to diuretics. Improving. Potassium is 3.5 today and Mag 1.9. Continue scheduled potassium supplementation 20 mEq PO BID with diuresis Continue PO Mag oxide. Monitor electrolytes daily. (6) Essential (primary) hypertension: Code(s): I10 - Essential (primary) hypertension Status: Chronic Assessment and Plan: BP was elevated on arrival, likely due to volume overload and has improved today. Last BP 142/83 continue amlodipine, metoprolol, and lisinopril monitor BP trends (7) Generalized weakness: Code(s): R53.1 - Weakness Status: Acute Assessment and Plan: Ongoing for several months. Suspect overall physical deconditioning in combination with chronic medical comorbidities Continue PT/OT. Dispo is SNF. Submitted for insurance authorization 02/08; still pending. Hopeful discharge tomorrow. Subjective Date/time seen: 02/09/21 16:14 Interval history: date of service: 02/09/2021 Leo Martinez is a 70-year-old male with history of atrial fibrillation on chronic anticoagulation, CKD stage III, hypertension, BPH, and CVA is seen in follow-up for CHF exacerbation. he is doing pretty well today. No shortness breath at rest. He is ambulating to the restroom and was able to walk down the [place] today. He has some mild HUERTA. No cough, no wheezing, no chest pain or palpitations. He is tolerating his diet well and denies nausea, vomiting, fever, chills, abdominal pain, diarrhea. Some irritation with his Arroyo catheter today. Review of Systems Review of Systems: All systems reviewed & are unremarkable except as noted in HPI and below Exam Narrative: Mr. Martinez is an obese, chronically ill appearing 70-year-old male who is resting sitting in a chair by the bedside. He appears comfortable and is in NARD. Neuro: awake, alert and oriented x4, speech clear, no focal neuro deficits noted HEENMT: normocephalic, atraumatic, EOMI, sclerae anicteric, moist oral mucosa Neck: supple, no lymphadenopathy Respiratory: diminished breath sounds MARINE, nonlabored breathing, tolerating room air. Cardio: regular rate, regular rhythm with S1-S2 Abdomen: protuberant, normoactive bowel sounds, soft, nontender to palpation Extremities: RLE with 1+ edema and LLE with 2+ edema, no tenderness to palpation, DP pulses 2+ bilaterally Skin: calves with extremely thickened, dry skin and chronic
[2021-02-09 20:00] VITALS: PULSE 78; RESP 16; O2SAT 97
[2021-02-09 20:11] VITALS: PULSE 78
[2021-02-09] MEDS: ATORVASTATIN 40 MG TABLET PO (20:11)
[2021-02-09] MEDS: traMADol HCL (*CRX) 25 MG TABLET PO (20:15)
[2021-02-09 20:35] LABS: Glucose Point of Care 144 mg/dl (65-105)
[2021-02-09 21:26] VITALS: BP 139/87; PULSE 83; RESP 18; TEMP 36.9; O2SAT 96
[2021-02-10] VITALS (7 sets, daily range): BP systolic 120–144; BP diastolic 73–85; PULSE 68–87; RESP 18–20; TEMP 36.3–36.6; O2SAT 97–100
[2021-02-10 05:45] LABS: Hematocrit 43.5 % (42.0-52.0); Hemoglobin 13.3 g/dL (14.0-18.0)
[2021-02-10 05:53] LABS: Anion Gap 6 mmol/L (8-16); Blood Urea Nitrogen 15 mg/dL (9-20); Calcium 8.9 mg/dL (8.4-10.2); Carbon Dioxide 33 mmol/L (22-30); Chloride 96 mmol/L (98-107); Estimated CRCL calculation 91 ml/min; Estimated Glomerular Filt Rate > 60; Glucose 91 mg/dL (65-110); Potassium 3.8 mmol/L (3.4-5.0); Sodium 135 mmol/L (137-145)
[2021-02-10 07:58] LABS: Glucose Point of Care 93 mg/dl (65-105)
[2021-02-10] MEDS: MAGNESIUM OXIDE 400 MG TABLET PO (09:10)
[2021-02-10] MEDS: FUROSEMIDE 40 MG TABLET PO (09:10)
[2021-02-10] MEDS: METOPROLOL TARTRATE 50 MG TAB 100 MG PO ×2 (09:10→20:21)
[2021-02-10] MEDS: DOCUSATE SODIUM 100 MG CAPSULE PO (09:10)
[2021-02-10] MEDS: amLODIPine BESYLATE 5 MG TABLET PO (09:10)
[2021-02-10] MEDS: APIXABAN 5 MG TABLET PO ×2 (09:10→17:11)
[2021-02-10] MEDS: lisinopriL 20 MG TABLET 40 MG PO ×2 (09:10→20:21)
[2021-02-10] MEDS: buPROPion HCL XL (24 HR) 150 MG TABCR 300 MG PO (09:11)
[2021-02-10] MEDS: FERROUS SULFATE 324 MG TABLET PO ×2 (09:11→17:10)
[2021-02-10] MEDS: POTASSIUM CHLORIDE 20 MEQ TABLET.ER PO ×2 (09:11→17:10)
[2021-02-10] MEDS: TAMSULOSIN HCL 0.4 MG CAPSULE PO (09:11)
[2021-02-10] MEDS: TOLNAFTATE 1% POWDER 45 GM BTL 1 APPLIC TOPICAL ×2 (09:12→20:22)
[2021-02-10] MEDS: EUCERIN CREAM 120 GM JAR 1 APPLIC TOPICAL (09:12)
[2021-02-10] MEDS: traMADol HCL (*CRX) 25 MG TABLET PO ×2 (09:17→20:20)
--- NOTE | 2021-02-10 10:17 | PM.DS ---
DS: Admitting Diagnosis Admitting Diagnosis CHF exacerbation DS: Discharge Diagnosis Discharge Diagnosis (1) CHF exacerbation: Code(s): I50.9 - Heart failure, unspecified Status: Acute Assessment and Plan: Date of Admission 02/05/21 Date of Discharge 02/10/21 Mr. Martinez is a 70yo M with History of atrial fibrillation on long-term anticoagulation, chronic kidney disease, hypertension, BPH, history of CVA who presented to the ED stating he was not feeling right and he began not feeling well the morning of presentation. He said they felt a little short of breath and felt wobbly with walking, generally weak. on further questioning he endorsed progressively worsening dyspnea with exertion ongoing for over 6 months with decreased exercise tolerance, recently had been requiring assistance to get in and out of his truck. His lower extremities are chronically edematous with thickened skin, but worsened recently. He never lays flat. He has not taken his Lasix in 1 month due to unwanted frequent urination, noting he had difficulty with urinary incontinence for over 6 months since his stroke. On arrival chest x-ray demonstrated cardiomegaly with small pleural effusions and pulmonary vascular congestion concerning for CHF exacerbation with BNP 7000. Troponins were negative. He was admitted to the hospitalist service for further management of CHF exacerbation. He was diuresed with IV Lasix while his fluid status and electrolytes were monitored closely. Arroyo catheter was inserted for strict I&O monitoring And was removed prior to discharge; voiding without difficulty day of discharge. He was feeling well after treatment with IV Lasix and was transitioned to oral Lasix which he tolerated well. He continue to work with PT/ OT and was felt to be a good candidate to continue therapy at a [facility] facility. He was hemodynamically stable for discharge on 02/10/2021 with instructions to follow-up with PCP as well as his program clerk. Presented with HUERTA. CXR with cardiomegaly, congestion, and small pleural effusions. BNP 7000 Was diuresed with with Lasix 40 mg IV b.i.d and has been transitioned to 40 mg PO lasix daily Tolerating well and continuing to diurese. Volume status has improved Echocardiogram from [place] reviewed Heart healthy diet. (2) Atrial fibrillation, chronic: Code(s): I48.20 - Chronic atrial fibrillation, unspecified Status: Acute Assessment and Plan: Rate is controlled maintained on his home metoprolol. Continue his long-term anticoagulation with his home Eliquis. (3) CKD (chronic kidney disease) stage 3, GFR 30-59 ml/min: Code(s): N18.3 - Chronic kidney disease, stage 3 (moderate) Status: Chronic Assessment and Plan: stable. (4) Normocytic anemia: Code(s): D64.9 - Anemia, unspecified Status: Acute Assessment and Plan: hemoglobin and hematocrit consistent with baseline. No signs or symptoms of acute bleeding. Continue ferrous sulfate (5) Hypokalemia: Code(s): E87.6 - Hypokalemia Status: Acute Assessment and Plan: Potassium and magnesium were low and replaced as needed, suspect related to increased diuresis. Monitor electrolytes. (6) Essential (primary) hypertension: Code(s): I10 - Essential (primary) hypertension Status: Chronic Assessment and Plan: BP was elevated on arrival, likely due to volume overload and has improved now maintained on his home amlodipine, metoprolol, and lisinopril. (7) Generalized weakness: Code(s): R53.1 - Weakness Status: Acute Assessment an
[2021-02-10 11:31] LABS: Glucose Point of Care 145 mg/dl (65-105)
[2021-02-10 16:53] LABS: Glucose Point of Care 141 mg/dl (65-105)
[2021-02-10] MEDS: ATORVASTATIN 40 MG TABLET PO (20:21)
[2021-02-10 20:54] LABS: Glucose Point of Care 85 mg/dl (65-105)
== END 2021-02-10 22:50 | DRG 292 ==
LOC: ANHED 19:47 → ANH2MED 02-05 01:06
PROVIDERS: Emergency Medicine; Physician Assistant; Admitting Provider Internal Medicine; Emergency Provider General Practice; PCP Family Medicine; Visit Provider Physician Assistant
DX: I13.0 Hypertensive heart and chronic kidney disease with heart failure and stage 1 through stage 4 chronic kidney disease, or unspecified chronic kidney disease (principal); I48.20 Chronic atrial fibrillation, unspecified; N18.30 Chronic kidney disease, stage 3 unspecified; I50.9 Heart failure, unspecified; D64.9 Anemia, unspecified; E87.6 Hypokalemia; T50.2X5A Adverse effect of carbonic-anhydrase inhibitors, benzothiadiazides and other diuretics, initial encounter; N40.0 Benign prostatic hyperplasia without lower urinary tract symptoms; M19.90 Unspecified osteoarthritis, unspecified site; M47.896 Other spondylosis, lumbar region; K21.9 Gastro-esophageal reflux disease without esophagitis; R32 Unspecified urinary incontinence; Z96.649 Presence of unspecified artificial hip joint; Z79.01 Long term (current) use of anticoagulants; Z90.49 Acquired absence of other specified parts of digestive tract; Z86.73 Personal history of transient ischemic attack (TIA), and cerebral infarction without residual deficits; Z86.718 Personal history of other venous thrombosis and embolism; Z87.891 Personal history of nicotine dependence
CPT/HCPCS: 36415; 36600; 71046; 80048; 82375; 82805; 82948; 83050; 83735; 83880; 84484; 85014; 85018; 85025; 85027; 85610; 85730; 93005; 94762; 96374; 96375; 96376; 97110; 97162; 97165; 97535; 99285; A9270; G0378; J1940; J3475